=== PATIENT | female | born 1975 | race Caucasian/White ===

== ENCOUNTER 2017-01-22 20:15 | Emergency (ER) | payer BC ==
[~2017-01-22] VITALS: Ht 172.7 cm; Wt 111.5 kg
[~2017-01-22 20:15] MED LIST: CEFD300C37 PO; METR500T PO; ONDA4TAB7 PO; PANT40TA3 PO; PRED10TA PO; PRED1TAB PO; TRAM-47 PO
[2017-01-22] MEDS ORDERED: [UNRECOGNIZED DRUG - OTHER] (20:39)
[2017-01-22] MEDS ORDERED: RITU10VI IV (20:40)
[2017-01-22] MEDS ORDERED: METOCLOPRAMIDE 5 MG/ML, 2ML IVPush ONE (21:30)
[2017-01-22] MEDS ORDERED: SODIUM CHLORIDE FLUSH 10ML SYR IVF ONE (21:30)
[2017-01-22] MEDS ORDERED: SODIUM CHLORIDE 0.9% 1,000ML IVBOLUS ONE (21:30)
[2017-01-22] MEDS ORDERED: DIPHENHYDRAMINE 50 MG/ML, 1ML IVPush ONE (21:30)
[2017-01-22] MEDS ORDERED: DIPHENHYDRAMINE 50 MG/ML, 1ML ONE (21:42)
[2017-01-22] MEDS ORDERED: METOCLOPRAMIDE 5 MG/ML, 2ML ONE (21:42)
[2017-01-22 21:45] LABS: HEMATOCRIT 42.6 % (34.6-47.8); HEMOGLOBIN 14.2 g/dL (11.7-16.4); WHITE BLOOD COUNT 13.4 x10^3/uL (3.4-10)
[2017-01-22 21:57] LABS: BLOOD UREA NITROGEN 13 mg/dL (7-18)
[2017-01-22 22:02] LABS: ASPARTATE AMINO TRANSFERASE 20 U/L (15-37)
[2017-01-22] MEDS ORDERED: LORazepam 2 MG/ML, 1ML ONE (22:46)
[2017-01-22] MEDS ORDERED: LORazepam 2 MG/ML, 1ML IVPush ONE (23:00)
[2017-01-22] MEDS ORDERED: GADOBUTROL 10 MMOL/10 ML PFS ONE (23:15)
[2017-01-23 00:31] VITALS: BP 122/81
== END 2017-01-23 00:55 | disposition home or self-care (01) ==
LOC: ED 21:21
DX: R51 Headache (principal); J01.10 Acute frontal sinusitis, unspecified; J01.20 Acute ethmoidal sinusitis, unspecified; J01.00 Acute maxillary sinusitis, unspecified; Z90.49 Acquired absence of other specified parts of digestive tract
CPT/HCPCS: 36415; 70543; 70553; 80053; 83520; 85025; 96361; 96374; 96375; 99285; A9585; J1200; J2060; J2765; J7030